=== PATIENT | male | born 1975 | race African-American/Black ===

== ENCOUNTER 2024-02-22 08:17 | Emergency (ER) | payer MEDICAID ==
[~2024-02-22] VITALS: Ht 182.9 cm; Wt 82.2 kg
[2024-02-22 09:46] VITALS: BP 126/69; PULSE 79; RESP 18; TEMP 99.3; O2SAT 97
[2024-02-22] MEDS: KETOROLAC TROMETH 30 MG/ML 1ML VIAL IM ONE (10:04)
[2024-02-22] MEDS: methylPREDNISolone SOD SUCC 125 MG/2 ML VL IM ONE (10:05)
[2024-02-22] MEDS ORDERED: IBUP1TAB5 PO (11:04)
[2024-02-22] MEDS ORDERED: PRED20TA2 PO (11:04)
== END 2024-02-22 11:11 | disposition home or self-care (01) ==
LOC: ER 08:17
DX: M54.16 Radiculopathy, lumbar region (principal); G89.29 Other chronic pain; M54.50 Low back pain, unspecified; F17.210 Nicotine dependence, cigarettes, uncomplicated; Z88.0 Allergy status to penicillin
CPT/HCPCS: 96372; 99284; J1885; J2919